=== PATIENT | male | born 1965 | race Caucasian/White ===

== ENCOUNTER 2019-02-08 05:27 | Day surgery (SDC) | payer OTHER ==
[2019-02-05 16:42] VITALS: BMI 28.0
[~2019-02-08] VITALS: Ht 180.3 cm; Wt 100.6 kg
[2019-02-08] VITALS (15 sets, daily range): BP systolic 101–136; BP diastolic 68–97; PULSE 82–108; RESP 12–18; Ht 180.3 cm; Wt 100.6 kg
[2019-02-08] MEDS ORDERED: SOD CHLORIDE 0.9% 1,000 ML IV ONE (05:30)
[2019-02-08] MEDS ORDERED: CEFAZOLIN 2 GM/50 ML (PMX) 50 ML IVPB ONE (05:30)
[2019-02-08] MEDS ORDERED: POLYMYXIN/BACITRACIN 1L IRRIG ONE (06:55)
[2019-02-08] MEDS ORDERED: BUPIVACAINE 0.25%/EPI (SDV) 30 ML INJ ONE (06:55)
[2019-02-08] MEDS ORDERED: ZOLP10TA PO (07:01)
[2019-02-08] MEDS ORDERED: METF500T24 PO (07:01)
[2019-02-08] MEDS ORDERED: LOSA100T15 PO (07:02)
[2019-02-08] MEDS ORDERED: HYDR25TA6 PO (07:02)
[2019-02-08] MEDS ORDERED: SIMV20TA PO (07:02)
[2019-02-08] MEDS ORDERED: AMLO-147 PO (07:03)
--- NOTE | 2019-02-08 07:15 | PREAC ---
Date/Time of Note Date/Time of Note DATE: 02/08/19 TIME: 07:14 Anesthesia Eval and Record Evaluation Time Pre-Procedure Interview DATE: 02/08/19 TIME: 07:14 Age 53 Sex male NPO: 8 hrs Preoperative diagnosis ventral and inguinal hernia Planned procedure ventral hernia and right inguinal hernia repair Past Medical History Past Medical History: Includes Cardio: HTN Endo: Diabetes GI: Obesity Surgery & Anesthesia Issues No known issue Meds Anticoagulation: No Beta Angel Luis within 24 hr: No Reason Beta Angel Luis not given: Pt. not on B-Angel Luis Reported Medications Amlodipine Besylate* (Amlodipine Besylate*) 10 Mg Tablet, 10 MG PO DAILY, #30 TAB 02/08/19 Hydrochlorothiazide* (Hydrochlorothiazide*) 25 Mg Tab, 25 MG PO DAILY, #30 TAB 02/08/19 Losartan Potassium* (Losartan Potassium*) 100 Mg Tablet, 100 MG PO DAILY, TAB 02/08/19 Simvastatin* (Zocor*) 20 Mg Tablet, 20 MG PO QHS, #30 TAB 02/08/19 Metformin Hcl* (Metformin Hcl*) 500 Mg Tablet, 500 MG PO WITH BREAKFAST DINNE, #60 TAB 02/08/19 Zolpidem Tartrate* (Ambien*) 10 Mg Tablet, 10 MG PO QHS PRN for INSOMNIA, TAB 02/08/19 Current Medications Sodium Chloride 1,000 ml @ 75 mls/hr [id number] ONCE IV Last administered on 02/08/19at 06:30; Admin Dose 75 MLS/HR; Start 02/08/19 at 05:30; Stop 02/08/19 at 18:49 Meds reviewed: Yes Allergies Coded Allergies: No Known Allergy (Unverified , 02/08/19) Allergies Reviewed: Yes Labs/Studies Labs Reviewed: Reviewed by anesthesiologist test: N/A Studies: ECG, CXR Pre-procedure Exam Last vitals Vital Signs Date Temp Pulse Resp B/P (MAP) Pulse Ox O2 O2 Flow FiO2 Time Delivery Rate 02/08/19 97.9 91 18 136/97 97 Room Air 06:30 (110) Airway: Adequate mouth opening, Adequate thyromental dist Mallampati: Mallampati II Teeth: Normal Lung: Normal Heart: Normal ASA Physical Status ASA physical status: 2 Emergency: None Planned Anesthetic General/MAC: ETT Planned Pain Management Parenteral pain med Pre-operative Attestations Prior to commencing anesthesia and surgery, the patient was re-evaluated, there was verification of: *The patient's identity *The results of appropriate recent lab work and preoperative vital signs *The above evaluation not changing prior to induction *Anesthetic plan, risk benefits, alternative and complications discussed with patient/family; questions answered; patient/family understands, accepts and wishes to proceed. JULISSA ROMANO Feb 08, 2019 07:15
[2019-02-08] MEDS ORDERED: PROPOFOL 20 ML ONE (07:19)
[2019-02-08] MEDS ORDERED: ROCURONIUM 50 MG INJ ONE (07:19)
[2019-02-08] MEDS ORDERED: LIDOCAINE 2% (SDV) 5 ML INJ ONE (07:19)
--- NOTE | 2019-02-08 07:32 | HPN ---
Date/Time of Note Date/Time of Note DATE: 02/08/19 TIME: 07:32 Interval H&P Admission Note Pt. seen H&P reviewed: No system changes NBA BRIGHT MD Feb 08, 2019 07:32
[2019-02-08] MEDS ORDERED: CEFAZOLIN 1 GM INJ ONE (07:48)
[2019-02-08] MEDS ORDERED: DEXAMETHASONE 4 MG/ML 5 ML INJ ONE (07:48)
[2019-02-08] MEDS ORDERED: ONDANSETRON 4 MG INJ ONE (07:49)
[2019-02-08] MEDS ORDERED: GLYCOPYRROLATE 0.4 MG INJ ONE (09:54)
[2019-02-08] MEDS ORDERED: NEOSTIGMINE 3 MG/3 ML SYRINGE ONE (09:54)
[2019-02-08] MEDS ORDERED: ALBUTEROL 0.083% (NEB) 2.5 MG/3 ML AMP HHN PRN (10:00)
[2019-02-08] MEDS ORDERED: DIPHENHYDRAMINE 50 MG INJ IV PRN (10:00)
[2019-02-08] MEDS ORDERED: FENTAnyl 50 MCG/ML VIAL IV PRN ×3 (10:00)
[2019-02-08] MEDS ORDERED: ONDANSETRON 4 MG INJ IV PRN ×2 (10:00)
[2019-02-08] MEDS ORDERED: EPHEDrine 25 MG/5 ML SYG IV PRN (10:00)
[2019-02-08] MEDS ORDERED: METOCLOPRAMIDE 10 MG INJ IV PRN (10:00)
[2019-02-08] MEDS ORDERED: MEPERIDINE 25 MG INJ IV PRN (10:00)
[2019-02-08] MEDS ORDERED: hydrALAzine 20 MG INJ IV PRN (10:00)
[2019-02-08] MEDS ORDERED: KETOROLAC 30 MG INJ IV PRN ×2 (10:00)
[2019-02-08] MEDS ORDERED: HYDROmorphONE 1 MG/5 ML IV SYRINGE IV PRN ×3 (10:00)
[2019-02-08] MEDS ORDERED: IBUPROFEN 600 MG TAB PO PRN (10:00)
[2019-02-08] MEDS ORDERED: morphine 2 MG INJ IV PRN (10:00)
[2019-02-08] MEDS ORDERED: OXYCODONE/ACETAMINOPHEN (5/325) TAB PO PRN ×2 (10:00)
[2019-02-08] MEDS ORDERED: LABETALOL HCL 20MG INJ IV PRN (10:00)
[2019-02-08] MEDS ORDERED: HYDROCODONE/APAP (5/325) TAB PO PRN ×2 (10:00)
--- NOTE | 2019-02-08 10:02 | PAC ---
Date/Time of Note Date/Time of Note DATE: 02/08/19 TIME: 10:01 Post-Anesthesia Notes Post-Anesthesia Note Last documented vital signs Vital Signs Date Temp Pulse Resp B/P (MAP) Pulse Ox O2 O2 Flow FiO2 Time Delivery Rate 02/08/19 97.9 91 18 136/97 97 Room Air 1002 (110) Activity: WNL Respiratory function: WNL Cardiovascular function: WNL Mental status: Baseline Pain reasonably controlled: Yes Hydration appropriate: Yes Nausea/Vomiting absent: Yes JULISSA ROMANO Feb 08, 2019 10:02
--- NOTE | 2019-02-08 10:03 | OPR ---
Date/Time of Note Date/Time of Note DATE: 02/08/19 TIME: 09:51 Operative Report Procedure Date: Feb 08, 2019 Preoperative Diagnosis 1. Right inguinal hernia without obstruction or gangrene 2. Ventral/umbilical hernia chronically incarcerated with fat Postoperative Diagnosis 1. Right inguinal hernia without obstruction or gangrene 2. Ventral/umbilical hernia chronically incarcerated with fat Operation/Procedure Performed 1. Open right inguinal hernia repair with mesh 2. Open repair of ventral/umbilical hernia with mesh 3. Right ilioinguinal nerve block Surgeon see signature line Podiatrist Assistant None Anesthesia Type: general Anesthesiologist: JULISSA ROMANO Estimated Blood Loss: minimal Transfusion none Specimen Ventral/umbilical hernia contents Grafts/Implants 1. Ethicon ultra pro plug and patch size large 2. Ethicon proceed ventral hernia patch size small Complications none Pt Condition Post Procedure: stable Disposition: PACU Indications The patient is a overweight 53-year-old male with a history of hypertension and diabetes who presented to the office complaining of a painful right groin bulge as well as a ventral abdominal wall bulge involving the umbilicus. He was diagnosed on clinical exam as having a right inguinal hernia along with a fat- containing ventral/umbilical hernia which was chronically nonreducible and fat- containing. The patient was scheduled for simultaneous open right inguinal hernia repair with mesh and repair of his ventral/umbilical hernia to prevent sequelae of hernia disease which include, but are not limited to: Incarceration and strangulation. All risks and benefits of the procedure including but not limited to: Wound infection, excessive bleeding, postoperative seroma/hematoma formation, nerve injury which may be temporary versus permanent, injury to the reproductive organs including the vas deferens and the testicle which may lead to testicular atrophy, injury to intra-abdominal organs necessitating subsequent operation, hernia recurrence, chronic pain, etc. were all explained to the patient full detail. The patient fully understood and wished to proceed with the procedure. Informed consent was therefore obtained. Procedure Description The patient was brought to the operating room and placed supine on the operating table. Bilateral sequential compression devices were placed on both lower extremities. A dose of broad-spectrum perioperative intravenous antibiotics was given. After the induction of smooth general anesthesia the patient's abdomen and bilateral groins were prepped and draped in standard surgical fashion. Attention was first turned to the repair of the right internal hernia. After performance of the surgical timeout 0.25% Marcaine with epinephrine was injected over the area of the incision. Incision was then made using a 15 blade scalpel from the right pubic tubercle towards the right anterior superior iliac spine. Incision was carried down through the skin into the subcutaneous tissues using Bovie electrocautery. Alex's fascia was incised and the aponeurosis of the external oblique muscle was reached. The aponeurosis of the external oblique muscle was then incised in the direction of its fibers using a 15 blade scalpel and further opened using Metzenbaum scissors. Spermatic cord was identified. There was fatty replacement of the cord. Using blunt dissection the spermatic cord was then mobilized off of the floor of the inguinal canal and encircled using a Graff drain. There is chronic scarring of the cord to the floor of the inguinal canal so tedious dissection was done to safely free it so that it can be isolated. The cord structures were identified and preserved throughout the entirety of the procedure. Cremasteric muscles were incised and dissection of the cord was begun. A large indirect hernia sac was identified. It was dissected off of the cord. Dissection was continued towards the neck of the hernia. There is chronic scarring and fibrosis of the cord to the hernia sac. Once completely dissected off of the cord the sac was then able to be reduced back into the intra-abdominal cavity in its entirety. Weakening and blowout of the floor of the inguinal canal was identified. The indirect hernia defect was then repaired using a large sized Ethicon ultra pro plug. The plug was sutured in place using interrupted 3-0 Vicryl sutures. An onlay mesh was then used to reconstruct the floor of the inguinal canal. It was secured in place using interrupted 2-0 Novafil sutures. Both the plug and the mesh were soaked in antibiotic irrigation prior to placement in the field. A slit was made in the mesh to accommodate the spermatic cord. With the repair complete it was examined and noted to be hemostatic and tension-free. The wound cavity was then irrigated with more antibiotic containing irrigation. Spermatic cord was then placed back into its anatomical position. The aponeurosis of the external oblique muscle was then reapproximated using a running 3-0 Vicryl suture. Incision was then closed in layers using a running 3-0 Vicryl suture for the Alex's fascia. The skin was then reapproximated using 4-0 Monocryl suture in a running subcuticular fashion. Attention was then turned to the right ilioinguinal nerve block. 10 cc of 0.25% Marcaine with epinephrine was then injected in a radial fashion approximately 2 fingerbreadths medial and inferior to the right anterior superior iliac spine. Attention was then turned towards repair of the ventral/umbilical abdominal wall hernia. 0.25% Marcaine with epinephrine was injected around the area of the incision. An infraumbilical semicircular incision was then made using a 15 blade scalpel. It was carried down through the skin and the dermis. Blunt dissection was then done using Radha clamps to the level of the anterior rectus fascia. The ventral/umbilical hernia involved the umbilicus. The umbilicus was, therefore, encircled using a Radha clamp. A fat-containing umbilical/ventral hernia was identified. The umbilicus was then transected at its base and the sac dissected off of the umbilicus. The hernia contents were transected and passed off the field as specimen. The hernia defect measured approximately 1 cm. A small Ethicon proceed ventral hernia patch was then used to repair the hernia defect. Its tails were secured to the fascia using interrupted 2-0 PDS sutures. The mesh was soaked in antibiotic irrigation prior to insertion into the field. With the repair complete it was inspected and noted to be tension-free and hemostatic. The wound cavity was then irrigated with more antibiotic irrigation. The fascia was then reapproximated over the mesh using a #1 PDS suture in [id number] fashion. The umbilicus was then tacked back down to the fascia using interrupted 3-0 Vicryl suture. Incision was then closed in layers using interrupted 3-0 Vicryl sutures for the dermal layer. The skin was reapproximated using a running 4-0 Monocryl suture in subcuticular fashion. Both incisions were cleaned and Dermabond was applied as well as an abdominal binder. Both testicles were palpated and noted to be in their anatomical position at the end of the case. The patient was awoken from anesthesia and transported to the recovery room in stable condition. All counts were correct at the end of the case 2. NBA BRIGHT MD Feb 08, 2019 10:03
== END 2019-02-08 12:40 | disposition home or self-care (01) ==
LOC: SDS 05:27
PROVIDERS: ATTEND Surgery
DX: K40.90 Unilateral inguinal hernia, without obstruction or gangrene, not specified as recurrent (principal); K42.0 Umbilical hernia with obstruction, without gangrene; I10 Essential (primary) hypertension; E11.9 Type 2 diabetes mellitus without complications; Z79.84 Long term (current) use of oral hypoglycemic drugs
CPT/HCPCS: 49505; 49587; 82962; 88302; C1781; J0690; J1100; J1170; J2270; J2405; J2710; J2765; J3010